=== PATIENT | male | born 1935 | race Caucasian/White ===

== ENCOUNTER 2019-08-04 21:39 | Emergency (ER) | payer MEDICARE, MEDICAID ==
[~2019-08-04] VITALS: Ht 180.3 cm; Wt 109.1 kg
[~2019-08-04 21:39] MED LIST: ALBU8.5H8 IH; ARFO15VI3 NEB; ASPI-611 PO; ATOR40TA PO; BUDE0.5A11 IH; CARV3.122 PO; CHOL100046 PO; CLOT10TR5 PO; CYAN100019 PO; FAMO-49 PO; LIDO700A5 TP; LIRA0.6P SQ; MECL-159 PO; MELA1TAB28 PO; METF-900 PO; MONT10TA26 PO; MULT-620 PO; NAPR220C15 PO; NITR0.4T48 SL; OMEG1CAP PO; OMEP20TA5 PO; RAMI5CAP65 PO; SENN-166 PO; SOLI10TA2 PO; SPIIN IH; TRAV5DRO EACHEYE; VITA-104 PO
[2019-08-04] MEDS ORDERED: AZIT-63 PO (22:38)
[2019-08-04 22:53] VITALS: BP 146/71
== END 2019-08-04 22:50 | disposition home or self-care (01) ==
LOC: ER 21:40
DX: S61.412A Laceration without foreign body of left hand, initial encounter (principal); S60.512A Abrasion of left hand, initial encounter; I25.10 Atherosclerotic heart disease of native coronary artery without angina pectoris; I10 Essential (primary) hypertension; I25.2 Old myocardial infarction; K21.9 Gastro-esophageal reflux disease without esophagitis; Z87.440 Personal history of urinary (tract) infections; G89.29 Other chronic pain; Z90.89 Acquired absence of other organs; Z98.890 Other specified postprocedural states; Z79.82 Long term (current) use of aspirin; Z79.2 Long term (current) use of antibiotics; Z79.899 Other long term (current) drug therapy; W55.03XA Scratched by cat, initial encounter; Y93.89 Activity, other specified; Y92.89 Other specified places as the place of occurrence of the external cause; Y99.8 Other external cause status
CPT/HCPCS: 12002; 99283

== ENCOUNTER 2019-08-15 13:30 | Emergency (ER) | payer MEDICARE, MEDICAID ==
[~2019-08-15] VITALS: Ht 180.3 cm; Wt 104.2 kg
[2019-08-15 13:55] VITALS: BP 143/57
== END 2019-08-15 14:37 | disposition home or self-care (01) ==
LOC: ER 13:30
DX: S61.412D Laceration without foreign body of left hand, subsequent encounter (principal); I25.10 Atherosclerotic heart disease of native coronary artery without angina pectoris; I10 Essential (primary) hypertension; I25.2 Old myocardial infarction; K21.9 Gastro-esophageal reflux disease without esophagitis; Z48.02 Encounter for removal of sutures; Z87.440 Personal history of urinary (tract) infections; G89.29 Other chronic pain; Z90.89 Acquired absence of other organs; Z98.890 Other specified postprocedural states; Z79.82 Long term (current) use of aspirin; Z79.899 Other long term (current) drug therapy; X58.XXXA Exposure to other specified factors, initial encounter; Y93.89 Activity, other specified; Y92.89 Other specified places as the place of occurrence of the external cause; Y99.8 Other external cause status
CPT/HCPCS: 99281

== ENCOUNTER 2020-11-18 07:49 | Emergency (ER) | payer MEDICARE, MEDICAID ==
[~2020-11-18] VITALS: Ht 180.3 cm; Wt 110.0 kg
[~2020-11-18 07:49] MED LIST changes: +ALBU8.5H17 IH; -ALBU8.5H8 IH; -MONT10TA26 PO; +MONT10TA32 PO; -OMEG1CAP PO; +OMEG1CAP61 PO
[2020-11-18 08:03] VITALS: BP 148/71
--- NOTE | 2020-11-18 08:11 | NUR ---
CALL [facility] FOR MYRA [phone]
[2020-11-18] MEDS ORDERED: LIDOcaine 1% W/epiNEPHrine 1:200,000 10ml vial IJ ONE (08:15)
[2020-11-18] MEDS ORDERED: bacitracin 15gm ointment TP ONE (08:15)
[2020-11-18] MEDS ORDERED: AMOX-422 PO (08:20)
== END 2020-11-18 09:01 | disposition home or self-care (01) ==
LOC: ER 07:50
DX: S61.411A Laceration without foreign body of right hand, initial encounter (principal); S81.811A Laceration without foreign body, right lower leg, initial encounter; I25.10 Atherosclerotic heart disease of native coronary artery without angina pectoris; I10 Essential (primary) hypertension; I25.2 Old myocardial infarction; K21.9 Gastro-esophageal reflux disease without esophagitis; G89.29 Other chronic pain; Z87.440 Personal history of urinary (tract) infections; Z90.49 Acquired absence of other specified parts of digestive tract; Z98.890 Other specified postprocedural states; Z79.2 Long term (current) use of antibiotics; Z79.899 Other long term (current) drug therapy; W55.01XA Bitten by cat, initial encounter; Y93.89 Activity, other specified; Y92.89 Other specified places as the place of occurrence of the external cause; Y99.8 Other external cause status
CPT/HCPCS: 12001; 73130; 99283

== ENCOUNTER 2024-10-15 11:19 | Emergency (ER) | payer MEDICARE, MEDICAID ==
[~2024-10-15] VITALS: Ht 180.3 cm; Wt 109.0 kg
[~2024-10-15 11:19] MED LIST changes: -MECL-159 PO; +MECL-302 PO; +MONT-40 PO; -MONT10TA32 PO; +OMEP20TA43 PO; -OMEP20TA5 PO; -RAMI5CAP65 PO; +RAMI5CAP71 PO; -SENN-166 PO; +SENN-267 PO
[2024-10-15 11:44] VITALS: BP 169/66; PULSE 72; RESP 18; O2SAT 95
[2024-10-15 12:37] LABS: OCCULT BLOOD,URINE LARGE (Neg)
[2024-10-15 12:39] LABS: UA COLLECTION TYPE CLN CATCH MIDSTREAM
[2024-10-15 12:50] LABS: SQUAMOUS EPITHELIAL CELL,UR NONE SEEN /LPF (FEW)
[2024-10-15 12:52] LABS: LEUKOCYTE ESTERASE ,URINE MODERATE (Neg); NITRITES, URINE POSITIVE (Neg)
[2024-10-15 13:02] LABS: MEAN PLATELET VOLUME 8.3 FL (7.4-10.4); RED CELL DISTRIBUTION WIDTH 13.7 % (11.5-14.5)
[2024-10-15 13:17] LABS: CREATININE 1.11 MG/DL (0.60-1.10); TOTAL CARBON DIOXIDE 25.5 MMOL/L (24-32); eCRCL 49 ML/MIN; eGFR 63 ML/MIN
[2024-10-15] MEDS ORDERED: CIPR-458 PO (13:28)
--- NOTE | 2024-10-15 13:29 | Physician Documentation ---
History of Present Illness ~ Chief Complaint: Blood in Urine Stated Complaint: BLOOD IN URINE Time Seen by MD: 13:10 Primary Medical Doctor: Ashlee PEARSON 88-year-old male presents to the ED with a complaint of bloody urine for the last several days. He states that it is intermittent in nature. He also denies any increased symptoms while urinating.. denies not any fevers. Medication Reconciliation Allergies: Coded Allergies: No Known Allergies (Unverified , 10/15/24) Scheduled Albuterol Sulfate (Proair Hfa), 2 PUFFS IH BID, (Reported) Arformoterol Tartrate (Brovana), 1 VIAL NEB BID, (Reported) Aspirin (Aspir 81), 1 TABLET PO QPM, (Reported) Atorvastatin Calcium* (Lipitor*), 1 TABLET PO BID, (Reported) Budesonide Neb* (Pulmicort Neb*), 0.5 MG IH BID, (Reported) Carvedilol (Carvedilol), 1 TAB PO BID, (Reported) Cholecalciferol (Vitamin D3) (Vitamin D), 1 CAP PO BID, (Reported) Ciprofloxacin HCl (Ciprofloxacin HCl), 1 TAB PO Q12H Clotrimazole (Clotrimazole), 1 TABLET PO 5XD, (Reported) Cyanocobalamin (Vitamin B-12) (Vitamin B-12), 1 TABLET PO Q48H, (Reported) Famotidine (Famotidine), 1 TAB PO HS, (Reported) Lidocaine (Lidoderm), 1 PATCH TP DAILY, (Reported) Liraglutide (Victoza), 1.2 MG SQ QPM, (Reported) Meclizine HCl (Meclizine HCl), 1 TAB PO Q8H Metformin Hcl* (Metformin ER*), 1 TAB PO QPM, (Reported) Montelukast Sodium (Montelukast Sodium), 10 MG PO QPM, (Reported) Multivitamins (Multivitamins), 1 TABLET PO DAILY, (Reported) Naproxen Sodium* (Aleve*), 440 MG PO BID, (Reported) [place]anna-3 Acid Ethyl Esters* (Lovaza*), 2 CAP PO BID, (Reported) Omeprazole (Omeprazole), 20 MG PO BIDAC, (Reported) Ramipril* (Altace*), 2 CAP PO QPM, (Reported) Solifenacin Succinate (Vesicare), 1 TABLET PO QPM, (Reported) Tiotropium [place] (SPIRIVA inhaler), 1 CAP IH DAILY, (Reported) Travoprost (Travatan Z), 1 DROP EACHEYE HS, (Reported) Vitamin B Complex (Vitamin B-100 Complex), 1 TAB PO Q48H, (Reported) Scheduled PRN Melatonin/Pyridoxine HCl (B6) (Melatonin 3 mg Tablet), 1 TAB PO PRN PRN for sleep, (Reported) Nitroglycerin (Nitroglycerin), 0.4 MG SL PRNCP PRN for Chest pain Q5min PRNx3- call MD, (Reported) Sennosides/Docusate Sodium (Senna S Tablet), 1 TAB PO PRN PRN for constipation, (Reported) Past Medical History Past Medical History: Arrhythmia, Coronary Artery Disease, Hypertension, Myocardial Infarction, Syncope, GERD, Hernia, UTI, Chronic Pain, Chronic Back Pain Past Surgical History: appendectomy, orthopedic surgeries Patient History: FH: bladder cancer son FH: breast cancer MOTHER, , Age: 76, Cause: Colon cancer Drug Use: none Lives with: Spouse Lives In: Home Review of Systems All Other Systems at this time: Reviewed and Negative ROS As stated above in the HPI, otherwise all systems are reviewed and negative. Physical Exam Vital Signs: Temperature: 98.1, Source: Oral, Heart Rate: 72, Respiratory Rate: 18, BP: 169/66, Pulse Oximetry: 95, Weight: 109.050 Oxygen Flow Rate: 0 Physical Exam General: Alert, no apparent distress. Extremities: Normal range of motion, no deformity. Neurologic: Oriented x4. Psychiatric: Normal mood and affect. Skin: Normal color, warm and dry. No edema, no ecchymosis. Progress Results/Orders Results/Orders Orders - CARLOS IRAHETA NP Ciprofloxacin Tablet (Cipro Tablet) (10/15/24 13:40) Vital Signs 10/15/24 11:44 Temp 98.1 Pulse 72 Resp 18 B/P (MAP) 169/66 Pulse Ox 95 O2 Flow Rate 0 Laboratory Tests Test 10/15/24 12:00 10/15/24 12:46 Urine Specimen Description Cln catch midstream Urine Color Red Urine Clarity Turbid Urine pH 6.5 Urine Specific [place] 1.010 Urine Protein >=300 H Urine Glucose (UA) 100 H Urine Ketones 15 H Urine Occult Blood Large H Urine Nitrite Positive H Urine Bilirubin Negative Urine Urobilinogen 4.0 H Urine Leukocyte Esterase Moderate H Urine RBC Tntc Urine WBC 0-4 Urine Squamous Epithelial Cells None seen Urine Bacteria None seen Urine Culture Indicated Indicated Volume Urine Centrifuged 10 ml Urine Comment White Blood Count 10.0 Red Blood Count 4.30 L Hemoglobin 14.5 Hematocrit 42.6 Mean Corpuscular Volume 99.1 H Mean Corpuscular Hemoglobin 33.8 H Mean Corpuscular Hemoglobin Concent 34.1 Red Cell Distribution Width 13.7 Platelet Count 155 Mean Platelet Volume 8.3 Neutrophils (%) (Auto) 62.9 Lymphocytes (%) (Auto) 27.1 Monocytes (%) (Auto) 6.6 Eosinophils (%) (Auto) 2.3 Basophils (%) (Auto) 1.1 H Neutrophils # (Auto) 6.3 Lymphocytes # (Auto) 2.7 Monocytes # (Auto) 0.7 Eosinophils # (Auto) 0.2 Basophils # (Auto) 0.1 CBC Comment Sodium Level 139 Potassium Level 4.5 Chloride Level 107 Carbon Dioxide Level 25.5 Anion Gap 7 L Blood Urea Nitrogen 19 H Creatinine 1.11 H Estimated GFR/1.73 m2 63 BUN/Creatinine Ratio 17.1 Glucose Level 105 H Calcium Level 9.1 Total Bilirubin 0.5 Aspartate Amino Transf (AST/SGOT) 16 Alanine Aminotransferase (ALT/SGPT) 22 Alkaline Phosphatase 66 Total Protein 6.6 Albumin 3.4 Globulin 3.2 Albumin/Globulin Ratio 1.1 Chemistry Comments Medical Decision Making Findings This very pleasant 88-year-old male presents with positive nitrites and hematuria in his urine we are going to start him on Cipro for for full coverage of bacterial organisms.. He remained were I believe is his cognitive baseline throughout his stay was alert oriented and did not show any signs of being acutely ill or having urosepsis. He was started on an oral antibiotic regimen while in the ED and discharged for outpatient the evaluate Departure Disposition: HOME / SELF CARE / HOMELESS Impression: Primary Impression: Urinary tract infection Discharge Instructions: Hematuria, Adult, Urinary Tract Infection, Adult Referrals: NO PRIMARY CARE PROVIDER (PCP) Prescriptions Ciprofloxacin HCl (Ciprofloxacin HCl) 500 Mg Tab 1 TAB PO Q12H for 10 Days, #20 TAB Prov: CARLOS IRAHETA DESOLDERER 10/15/24 Education Educated: Patient Educated regarding: diagnosis Signature Scribe Signature: hj Attestation: Scribed for Carlos Iraheta Lint Cleaner by Carlos Watkins NP . 10/15/24 13:23 CARLOS IRAHEAT NP Oct 15, 2024 13:29
[2024-10-15] MEDS ORDERED: ciprofloxacin 250mg tablet PO ONE (13:40)
[2024-10-15 13:41] VITALS: TEMP 98.1
== END 2024-10-15 13:43 | disposition home or self-care (01) ==
LOC: ER 11:20
DX: N39.0 Urinary tract infection, site not specified (principal); I10 Essential (primary) hypertension; I25.10 Atherosclerotic heart disease of native coronary artery without angina pectoris; K21.9 Gastro-esophageal reflux disease without esophagitis; I25.2 Old myocardial infarction; Z90.49 Acquired absence of other specified parts of digestive tract
CPT/HCPCS: 36415; 80053; 81001; 85025; 87088; 99283